=== PATIENT | female | born 1965 | race Caucasian/White ===

== ENCOUNTER 2020-01-31 04:24 | Emergency (ER) | payer OTHER ==
[~2020-01-31] VITALS: Ht 165.1 cm; Wt 93.9 kg
[~2020-01-31 04:24] MED LIST: MUCINEX DM1 TAB.SR . PO; ROBITUSSIN7.4 MG MM; ZITHROMAX500 MG PO
[2020-01-31] MEDS ORDERED: CLEOCIN HCL300 MG (04:29)
[2020-01-31] MEDS ORDERED: ATORVASTATIN CA10 MG (04:29)
[2020-01-31] MEDS ORDERED: KETO10TA2 PO (04:42)
== END 2020-01-31 04:53 | disposition home or self-care (01) ==
LOC: ER 04:24
DX: K08.89 Other specified disorders of teeth and supporting structures (principal)

== ENCOUNTER 2022-05-10 19:20 | Emergency (ER) | payer OTHER ==
[~2022-05-10] VITALS: Ht 165.1 cm; Wt 95.3 kg
[~2022-05-10 19:20] MED LIST changes: +ATORVASTATIN CA10 MG; +CLEOCIN HCL300 MG; +KETO10TA2 PO
[2022-05-11] MEDS ORDERED: PHENAGIL TABLE1 EACH PO (03:35)
[2022-05-11] MEDS ORDERED: DOLOGESIC-DF 51 EACH PO (03:35)
== END 2022-05-11 04:01 ==
LOC: ER 19:20
DX: U07.1 COVID-19 (principal)

== ENCOUNTER 2023-05-13 11:50 | Emergency (ER) | payer OTHER ==
[~2023-05-13] VITALS: Ht 165.1 cm; Wt 93.0 kg
[~2023-05-13 11:50] MED LIST changes: +DOLOGESIC-DF 51 EACH PO; +PHENAGIL TABLE1 EACH PO
[2023-05-13] MEDS ORDERED: ATORVASTATIN CA20 MG PO (12:14)
[2023-05-13 13:07] LABS: HEMATOCRIT 39.4 % (36.0-45.00); HEMOGLOBIN 13.3 g/dL (12.0-15.00); MEAN CELL VOLUME 81.7 fL (80.00-100.00); MEAN CORPUSCULAR HEMOGLOBIN 27.5 pg (27.00-32.0); MEAN CORPUSCULAR HGB CONC 33.7 g/dl (32.0-36.0); PLATELET COUNT 227 K/uL (150-450); RED BLOOD COUNT 4.82 M/uL (4.00-6.00); RED CELL DISTRIBUTION WIDTH 13.6 % (11.5-14.5)
[2023-05-13 13:37] LABS: CREATININE SERUM 0.78 mg/dL (0.55-1.02); GFR 76.12; POTASSIUM 3.35 mEq/L (3.5-5.1)
== END 2023-05-13 15:34 | disposition home or self-care (01) ==
LOC: ER 11:51
PROVIDERS: Emergency Medicine
DX: R42 Dizziness and giddiness (principal)

== ENCOUNTER 2025-03-20 19:58 | Emergency (ER) | payer OTHER ==
[~2025-03-20] VITALS: Ht 165.1 cm; Wt 94.8 kg
[~2025-03-20 19:58] MED LIST changes: +ATORVASTATIN CA20 MG PO
[2025-03-20 21:36] LABS: BASO % 0.8 % (0.1-1.2); EOS # 0.18 (0.04-0.54); EOS % 1.7 % (0.7-7.0); LYMPH # 2.43 (1.18-3.74); LYMPH % 23.3 % (19.3-53.1); MEAN PLATELET VOLUME 10.70 fl (9.4-12.4); MONO # 0.71 (0.24-0.82); MONO % 6.8 % (4.7-12.5); NEUT # 7.02 (1.56-6.13); NEUT % 67.3 % (34.0-71.1); RED CELL DISTRIBUTION WIDTH 14.0 % (11.6-14.4)
[2025-03-20 22:02] LABS: URINE APPEARANCE Clear; URINE BILIRRUBIN Negative (NEGATIVE); URINE BLOOD Large; URINE COLOR Yellow; URINE GLUCOSE Negative (NEGATIVE); URINE KETONE Negative (NEGATIVE); URINE LEUKOCYTE Small; URINE NITRATE Negative; URINE PROTEIN Trace (NEGATIVE); URINE UROBILINOGEN 0.2 E.U./dl
[2025-03-20 22:05] LABS: URINE BACTERIA 61.1 uL (0.0-1933); URINE EPITHELIAL CELLS 23.3 uL (0.0-38.8); URINE RBC 429.8 uL (0.0-20.8); URINE WBC 181.0 uL (0.0-23.2)
[2025-03-20 22:15] LABS: URINE CAST 0.14 uL (0.0-1.40)
[2025-03-20 22:26] LABS: ALT/SGPT 26.0 U/L (12-78); AST/SGOT 18.0 U/L (15-37); BILIRUBIN TOTAL 0.5 mg/dL (0.3-1.2); BUN CREA RATIO 13.0 (7.0-25.0); CREATININE SERUM 0.84 mg/dL (0.55-1.02); GFR 69.4; GLOBULINA 4.2 G/DL (2.4-3.5); GLUCOSE FASTING 91.0 mg/dL (65-100); OSMOLALITY SERUM 286.0 MOSM/KG (275-295)
[2025-03-20] MEDS ORDERED: KETOROLAC TROMETHAMINE 30 MG VIAL IM STA (22:31)
[2025-03-20] MEDS ORDERED: CEFTRIAXONE SODIUM 1,000 MG VIAL IM STA (22:31)
[2025-03-20] MEDS ORDERED: DEXAMETHASONE SODIUM PHOSPHATE 4 MG/ML VIAL IM STA (22:31)
[2025-03-20] MEDS ORDERED: CIPRO500 MG PO (22:33)
[2025-03-20] MEDS ORDERED: KETOROLAC TROMETHAMINE 30 MG VIAL ONE (22:35)
[2025-03-20] MEDS ORDERED: LIDOCAINE HCL 1% 10ML VIAL ONE (22:36)
[2025-03-20] MEDS ORDERED: CEFTRIAXONE SODIUM 1,000 MG VIAL ONE (22:36)
[2025-03-20] MEDS ORDERED: DEXAMETHASONE SODIUM PHOSPHATE 4 MG/ML VIAL ONE (22:36)
== END 2025-03-20 22:52 | disposition home or self-care (01) ==
LOC: ER 19:58
PROVIDERS: General Practice
DX: N39.0 Urinary tract infection, site not specified (principal); I34.1 Nonrheumatic mitral (valve) prolapse